=== PATIENT | male | born 1935 | race Caucasian/White ===

== ENCOUNTER 2016-03-22 16:18 | Emergency (ER) | payer MEDICARE, OTHER ==
[~2016-03-22 16:18] MED LIST: ASC500 PO; ASPI81TA2 PO; CHOL10002 PO; CYA1000I IM; ERGO400C PO; NAPR220T2 PO; NAPR375T2 PO; OMEP20TA86 PO; SERT50TA9 PO; TIZA2CAP7 PO; ZES5 PO
[2016-03-22 16:28] VITALS: BP 131/67; PULSE 72; RESP 18; O2SAT 93
--- NOTE | 2016-03-22 16:36 | ED.REPORT ---
HPI-Hip/Pelvis Prob/Inj Date of Service Mar 22, 2016 ED Provider: Osmar Ortiz MD Pt is an 80 year old male with a hx of HTN and left hip arthroplasty in 2011 with revision in 2016 presenting to the ED via EMS complaining of recurrent dislocation of his left hip. He reports that he reached forward and felt his hip pop. Pt was seen by Dr. Lua on January 22, 2016 with the same problem and was reduced in the emergency department. He denies other symptoms at this time. Nursing Notes Stated Complaint: LEFT HIP DISLOCATION Chief Complaint: Extremity Trauma Nursing Notes Reviewed: Yes Allergies: Coded Allergies: TAPE (Verified Allergy, Severe, BLISTERS, 03/16/09) Scheduled Ascorbic Acid-Expunged Drug, Do Not Renew! (Vitamin C-Expunged Drug, Do Not Renew!) 500 Mg Tablet 1,000 MG PO DAILY Aspirin-Expunged Drug, Do Not Renew! (Aspirin-Expunged Drug, Do Not Renew!) 81 Mg Tablet 81 MG PO DAILY Cholecalciferol-Expunged Drug, Do Not Renew! (Vitamin D3-Expunged Drug, Do Not Renew!) 1,000 Unit Tablet 2,000 UNITS PO DAILY Cyanocobalamine (Vitamin B12) 1 Ml Vial 1,000 MCG IM Q30D Ergocalciferol-Expunged Drug, Do Not Renew! (Vitamin D-Expunged Drug, Do Not Renew!) 400 Unit Capsule 400 UNIT PO DAILY Lisinopril-Expunged Drug, Do Not Renew! (Lisinopril-Expunged Drug, Do Not Renew! ) 5 Mg Tablet 5 MG PO DAILY Naproxen Sodium-Expunged Drug, Do Not Renew! (Naproxen Sodium-Expunged Drug, Do Not Renew!) 220 Mg Tablet 375 MG PO BIDWM Omeprazole-Expunged Drug, Do Not Renew! (Omeprazole-Expunged Drug, Do Not Renew! ) 20 Mg Tablet. 20 MG PO DAILY Sertraline-Expunged Drug, Choose New Med! (Sertraline-Expunged Drug, Choose New Med!) 50 Mg Tablet 50 MG PO DAILY Scheduled PRN Naproxen (Naproxen) 375 Mg Tablet 375 MG PO DAILY PRN PRN For Pain Miscellaneous Medications TIZANIDINE HCL-Expunged Drug, Do Not Renew! (TIZANIDINE-Expunged Drug, Do Not Renew!) 2 Mg Capsule 2 MG PO TAKE 1 CAPSULE 2-3 TIMES DAILY. 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 Respiratory: Denies: Shortness of breath Cardiovascular: Denies: Chest pain GI: Denies: Vomiting Physical Exam Initial Vital Signs Vital Signs (First) Date Time Temp Pulse Resp B/P Pulse Ox O2 Delivery O2 Flow Rate FiO2 03/22/16 16:28 36.7 72 18 131/67 93 Room Air Initial VS: Reviewed General/Constitutional: Well-developed, Well-nourished Head / Eyes: Atraumatic, Normocephalic, PERRL ENT: Mucous membranes moist, Conjunctiva normal, No scleral icterus Respiratory: Breath sounds normal, Clear to auscultation, No respiratory distress Cardiovascular: Regular rate & rhythm, Heart sounds normal, Intact distal pulses Abdomen / GI: No distention Upper Extremities: Vascular intact, Neuro intact, No swelling, No tenderness Skin: Warm, Dry, No cyanosis Neurologic: Alert, Oriented, Nonfocal Psychiatric: Mood/affect normal, Behavior normal, Normal thought content Interpretation & Diagnostics Lab Results Interpretation Test 03/22/16 17:05 Hold Purple Top Tube Received (Received) Hold Blue Top Tube Received (Received) Hold Red Top Tube Received (Received) Hold [place] Top Tube Received (Received) Hold [place] Top Tube Received (Received) X-Ray Interpretation Xray Interpretation: IMPRESSION: Dislocation left hip prosthesis Dictated by: Javon Rivera M.D. on 03/22/2016 at 17:04 IMPRESSION: Status post left hip arthroplasty reduction. Dictated by: Nancy Mccracken M.D. on 03/22/2016 at 19:11 X-Ray Ordered: Pelvis, Hip left Interpretation / Wet Read by: Interpret - Radiologist Procedures Proced Mod Sedation/Analgesia Pt tolerated procedure well, no complications. Time: 18:40 Procedure Performed by: ED physician Consent / Setup: Informed consent provided, Time-out performed, Hand hygiene observed, Stand sterile technique, Position supine, Head of bed at 90 degrees Indication: Hip reduction Preparation: hospitalist program director applied, Pulse oximeter applied, Constant attendance, IV access established, Eval last meal time, Procedure explained, Suction available VS Prior to Procedure: All vital signs normal Sedation: Sedation: Propofol ASA Classification: 1 normal healthy patient Response During Procedure: Handled secretions adeq, Maintained airway well, Oxygenation stable, Sedation appropriate, Vital signs stable Complications During/After: None Mental Status After Procedure: Alert, Oriented X3, Response to verbal stim, At patient's baseline Post-Procedure: Vital signs normal Attestation: I performed procedure, I performed sedation Reduction Post Dislocation Hip Pt tolerated procedure well, left hip dislocation successfully reduced. Time: 18:40 Procedure Performed by: ED physician Consent / Timeout / Setup: Consent from patient Procedural Sedation/Analgesia: Sedation: Propofol Which Hip and Technique: Left hip Neurovascular: Intact pre-procedure, Intact post-procedure Post-Procedure / Complications: Procedure successful, X-ray disloc reduced, Condition improved, Tolerated procedure well, Patient stable Re-Eval/Medical Decision Re-Evaluation/Progress #1: Time of Eval: 17:04 Patient Status: Condition improved Re-Evaluation/Progress Note: Discussed radiology results and plan for reduction. Pt not currently in pain. Re-Evaluation/Progress #2: Time of Eval: 18:20 Patient Status: Condition improved Re-Evaluation/Progress Note: Pt agrees to conscious sedation. Discussed risks of procedure. Pt understands and agrees with plan. Re-Evaluation/Progress #3: Time of Eval: 18:39 Patient Status: Condition improved Re-Evaluation/Progress Note: Performed conscious sedation and left hip reduction. Procedure tolerated well. Re-Evaluation/Progress #4: Time of Eval: 20:07 Patient Status: Condition improved Re-Evaluation/Progress Note: Discussed plan for discharge and follow up. Pt understands and agrees with plan. All pt questions addressed. Counseled Regarding: Diagnosis, Lab results, Need for follow-up, When/why to return to ED Discharge & Departure Impression: Primary Impression: Dislocation of left hip Encounter type: initial encounter Qualified Code: S73.005A - Unspecified dislocation of left hip, initial encounter Disposition: Home Discharge Condition All VS Reviewed: Yes Condition: Improved Additional Instructions: Please call your orthopedic surgeon this week so he is aware you had a second dislocation. Follow precautions for positions and movements given postoperatively. Do Not drive tonight as we gave sedating medications Referrals: Malena Caraballo MD (PCP) Scribe Attestation Portions of this note were transcribed by Eliza West. I, Dr. Ortiz personally performed the history, physical exam and medical decision-making; I reviewed and confirmed the accuracy of the information in the transcribed note. Signed by : Zuhair Mack, 03/22/2016 and 2139. copies to: Malena Caraballo MD, Donald L MD Mar 22, 2016 16:36 ELIZA WEST Mar 22, 2016 16:46
--- NOTE | 2016-03-22 17:07 | DRSVH ---
PROCEDURE: X-RAY LEFT HIP COMPLETE, MINIMUM TWO VIEWS ([id number]) INDICATIONS: dislocated TECHNIQUE: 2 views of the hip were acquired. COMPARISON: 02/17/2016 FINDINGS: Bones: Superior dislocation of the left hip prosthesis. No acute fracture seen. No suspicious bony le sions. The visualized pelvic ring appears intact. Soft tissues: No suspicious soft tissue calcifications or masses. IMPRESSION: Dislocation left hip prosthesis Dictated by: Javon Rivera M.D. on 03/22/2016 at 17:04 Approved by: Javon Rivera M.D. on 03/22/2016 at 17:05
[2016-03-22] MEDS: Propofol 10 mg/mL 20 mL Inj IVPUSH ONE ×2 (18:40→18:58)
--- NOTE | 2016-03-22 19:13 | DRSVH ---
PROCEDURE: X-RAY PELVIS, ONE OR TWO VIEWS ([id number]) INDICATIONS: post red TECHNIQUE: 2 view(s) of the pelvis acquired. COMPARISON: [facility], CR, XR HIP 2VW LT, 03/22/2016, 16:27. FINDINGS: Bones: There has been interval reduction of the left hip prosthetic dislocation. Soft tissues: Visualized bowel gas pattern is normal. No suspicious soft tissue calcifications. IMPRESSION: Status post left hip arthroplasty reduction. Dictated by: Nancy Mccracken M.D. on 03/22/2016 at 19:11 Approved by: Nancy Mccracken M.D. on 03/22/2016 at 19:11
[2016-03-22 20:23] VITALS: BP 139/88; PULSE 78; RESP 12; O2SAT 95
== END 2016-03-22 20:24 | disposition home or self-care (01) ==
LOC: SED 16:18
DX: T84.021A Dislocation of internal left hip prosthesis, initial encounter (principal); X50.1XXA Overexertion from prolonged static or awkward postures, initial encounter; Y92.009 Unspecified place in unspecified non-institutional (private) residence as the place of occurrence of the external cause; Y93.89 Activity, other specified; Y99.8 Other external cause status; K21.9 Gastro-esophageal reflux disease without esophagitis; I10 Essential (primary) hypertension; Z96.642 Presence of left artificial hip joint; Z87.891 Personal history of nicotine dependence; Z79.82 Long term (current) use of aspirin

== ENCOUNTER 2016-06-02 22:02 | Emergency (ER) | payer MEDICARE, OTHER ==
[~2016-06-02] VITALS: Ht 177.8 cm; Wt 84.1 kg
[2016-06-02 22:06] VITALS: BP 146/82; PULSE 79; RESP 16; O2SAT 96
--- NOTE | 2016-06-02 22:10 | ED.REPORT ---
HPI-Hip/Pelvis Prob/Inj Date of Service Jun 02, 2016 ED Provider: Mu Acuña MD Patient is a 80 year old male with a history of a left hip replacement s/p revision in 2016 and 2x recent hip dislocations presents to the ED via EMS with a left hip dislocation onset just prior to arrival. Tonight the patient was sitting on the edge of his bed and rolled over to the side, which caused his hip to dislocate. His hip reduced easily in the ED during the two prior visits for this complaint. The patient was seen at [facility] by his orthopedic surgeon last week to discuss his recent dislocations. X-rays were taken at that time. The surgeon stated that there was a revision that could be done for his hip replacement to reduce the frequency of dislocations, but that it would limit his range of motion. Patient denies any other medical complaints. The patient last ate around 4-5pm this afternoon. Nursing Notes Stated Complaint: LEFT HIP FX Chief Complaint: Extremity Trauma Nursing Notes Reviewed: Yes Allergies: Coded Allergies: TAPE (Verified Allergy, Severe, BLISTERS, 03/16/09) Scheduled Ascorbic Acid-Expunged Drug, Do Not Renew! (Vitamin C-Expunged Drug, Do Not Renew!) 500 Mg Tablet 1,000 MG PO DAILY Aspirin-Expunged Drug, Do Not Renew! (Aspirin-Expunged Drug, Do Not Renew!) 81 Mg Tablet 81 MG PO DAILY Cholecalciferol-Expunged Drug, Do Not Renew! (Vitamin D3-Expunged Drug, Do Not Renew!) 1,000 Unit Tablet 2,000 UNITS PO DAILY Cyanocobalamine (Vitamin B12) 1 Ml Vial 1,000 MCG IM Q30D Ergocalciferol-Expunged Drug, Do Not Renew! (Vitamin D-Expunged Drug, Do Not Renew!) 400 Unit Capsule 400 UNIT PO DAILY Lisinopril-Expunged Drug, Do Not Renew! (Lisinopril-Expunged Drug, Do Not Renew! ) 5 Mg Tablet 5 MG PO DAILY Naproxen Sodium-Expunged Drug, Do Not Renew! (Naproxen Sodium-Expunged Drug, Do Not Renew!) 220 Mg Tablet 375 MG PO BIDWM Omeprazole-Expunged Drug, Do Not Renew! (Omeprazole-Expunged Drug, Do Not Renew! ) 20 Mg Tablet.dr 20 MG PO DAILY Sertraline-Expunged Drug, Choose New Med! (Sertraline-Expunged Drug, Choose New Med!) 50 Mg Tablet 50 MG PO DAILY Scheduled PRN Naproxen (Naproxen) 375 Mg Tablet 375 MG PO DAILY PRN PRN For Pain Miscellaneous Medications TIZANIDINE HCL-Expunged Drug, Do Not Renew! (TIZANIDINE-Expunged Drug, Do Not Renew!) 2 Mg Capsule 2 MG PO TAKE 1 CAPSULE 2-3 TIMES DAILY. 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 Physical Exam Initial Vital Signs Vital Signs (First) Date Time Temp Pulse Resp B/P Pulse Ox O2 Delivery O2 Flow Rate FiO2 06/02/16 22:06 36.6 79 16 146/82 96 Room Air Initial VS: Reviewed, Vital signs normal Skin: Warm, Dry, No cyanosis Neurologic: Alert, Oriented, Nonfocal Psychiatric: Mood/affect normal, Behavior normal, Normal thought content Lower Extremity / Pelvis / MS: Neurologic intact, Vascular intact Left Hip: Positive: Deformity present (proximal deformity of the left lateral hip), Leg shortened (and internally rotated) General/Constitutional: Awake, Alert, No acute distress Head / Eyes: Atraumatic, Normocephalic, PERRL Neck: Supple, Non-tender Respiratory / Chest: Breath sounds NL, Breath sounds = bilat, No respiratory distress, No rales, No rhonchi, No wheezing Cardiovascular: Heart rate NL, Regular rhythm, Heart sounds NL, No murmurs ENT: Airway patent, Pharynx NL Interpretation & Diagnostics Lab Results Interpretation Test 06/02/16 23:36 Hold Purple Top Tube Received (Received) Hold Blue Top Tube Received (Received) Hold [place] Top Tube Received (Received) X-Ray Interpretation Xray Interpretation: Impression: Two-part prosthesis, which is cleared dislocated. X-Ray Ordered: Hip left Interpretation / Wet Read by: Wet read ED physician Xray Interpretation: Impression: Reduced. No fracture. X-Ray Ordered: Hip left Interpretation / Wet Read by: Wet read ED physician Procedures Proced Mod Sedation/Analgesia Time: 22:45 Procedure Performed by: ED physician Sedation Time: 10 - 15 min Consent / Setup: Informed consent provided, Consent from patient, Time-out performed, Hand hygiene observed, Stand sterile technique, Position supine Indication: Hip reduction Preparation: vehicle monitor technician applied, Pulse oximeter applied, Constant attendance, IV access established, Eval last meal time, Supplemental oxygen, Procedure explained, Suction available, End tidal CO2 mon applied VS Prior to Procedure: All vital signs normal Mallampati: Class & Anatomy: 1 tonsils/uvula/s palate Airway Exam: Normal facial anatomy, Normal neck anatomy, Normal anatomy CVS/Resp Exam: Normal breath sounds, Normal heart sounds Neuro Exam: Alert, No acute distress, Responsive Sedation: Sedation: Propofol (100mg) ASA Classification: 2 mild systemic disease Response During Procedure: Handled secretions adeq, Maintained airway well, Oxygenation stable, Sedation appropriate, Vital signs stable Complications During/After: None Reversal: None required Mental Status After Procedure: Alert, Oriented X3 Post-Procedure: Alert prior to discharge, Ambulatory with assist, Pt rtn pre- proc baseline, Vital signs normal Attestation: I performed procedure, I performed sedation Reduction Post Dislocation Hip Time: 22:44 Procedure Performed by: ED physician Consent / Timeout / Setup: Informed consent provided, Consent from patient, Time-out performed, Oxygen administered, Pulse oximeter applied, vehicle monitor technician applied, Hand hygiene observed Procedural Sedation/Analgesia: Sedation: Propofol (100mg) Which Hip and Technique: Left hip (traction with countertraction, with hip flexed at 90 degrees) Neurovascular: Intact pre-procedure, Intact post-procedure Post-Procedure / Complications: Reduced per examination, Procedure successful, X-ray disloc reduced, Hip immobilized, Condition improved, Tolerated procedure well, Patient stable Re-Eval/Medical Decision Med Decision/Clinical Course 80-year-old male with recurrent left hip dislocation. He has a two-part prosthesis. X-ray confirmed dislocation. The hip was easily repeated repositioned under propofol sedation. X-ray confirmed relocation. There were no problems or complications. Source of Hx: Old records Re-Evaluation/Progress #1: Time of Eval: 22:30 Re-Evaluation/Progress Note: Patient's hip will be reduced, as it is dislocated per x-ray. Risks/benefits of procedural sedation discussed. Consent signed. Re-Evaluation/Progress #2: Time of Eval: 22:45 Re-Evaluation/Progress Note: Hip was reduced successfully. Re-Evaluation/Progress #3: Time of Eval: 22:55 Patient Status: Condition improved Re-Evaluation/Progress Note: Patient is now awake and alert. He reports hip pain and will be given medication for his pain. Re-Evaluation/Progress #4: Time of Eval: 23:52 Patient Status: Condition improved Re-Evaluation/Progress Note: Patient is ready to be discharged home, pain is now under control. Patient understands and agrees with the plan to be discharged home. Discharge instructions and follow-up discussed. All questions were addressed. Return to the ED warnings given. Counseled Regarding: Diagnosis, Need for follow-up, When/why to return to ED Discharge & Departure Impression: Primary Impression: Dislocation of left hip Encounter type: initial encounter Qualified Code: S73.005A - Unspecified dislocation of left hip, initial encounter Disposition: Home Discharge Condition All VS Reviewed: Yes Condition: Stable Patient Instructions: Moderate Sedation (ED) Additional Instructions: The hip was easily relocated under propofol 100 mg IV sedation. Avoid bending the left hip. Use the knee immobilizer to assist with that. Do not drive. Home to sleep. Follow-up with your regular orthopedist to discuss the future of this hip. Referrals: Malena Caraballo MD (PCP) Scribe Attestation Portions of this note were transcribed by Shannan Cohn. I, Dr. Acuña personally performed the history, physical exam and medical decision-making; I reviewed and confirmed the accuracy of the information in the transcribed note. Signed by: Zuhair Trinidad, 06/03/2016 0008 copies to: Malena Caraballo MD, Howard L MD Jun 02, 2016 22:10 Shannan Cohn Jun 02, 2016 22:18
[2016-06-02] MEDS ORDERED: Propofol 10 mg/mL 20 mL Inj IVPUSH ONE (22:30)
[2016-06-02] MEDS ORDERED: HYDROmorphone 0.5 mg/0.5 mL iSecure Syringe IVPUSH ONE (23:05)
[2016-06-03 00:03] VITALS: BP 117/62; PULSE 74; RESP 18; O2SAT 94
--- NOTE | 2016-06-03 10:02 | DRSVH ---
PROCEDURE: X-RAY LEFT HIP, ONE VIEW ([id number]) INDICATIONS: probable dislocation TECHNIQUE: 3 views of the hip were acquired. COMPARISON: None. FINDINGS: Bones: Superior lateral dislocation of the femoral head prosthetic component of the left hip arthropl asty relative to the acetabular component. No definite periprosthetic fractures. Soft tissues: No suspicious soft tissue calcifications or masses. IMPRESSION: Left hip dislocation. Dictated by: Raghav Carmona RR Interpreted: Mary Melendez MD on 06/03/2016 at 8:27 Transcribed by: ANA on 06/03/2016 at 10:02 Approved by: Mary Melendez MD, PhD on 06/03/2016 at 12:20
--- NOTE | 2016-06-03 10:03 | DRSVH ---
PROCEDURE: X-RAY LEFT HIP COMPLETE, MINIMUM TWO VIEWS ([id number]) INDICATIONS: status post reduction TECHNIQUE: 2 views of the hip were acquired. COMPARISON: [facility], CR, XR HIP 2VW LT, 03/22/2016, 16:27. FINDINGS: Bones: Expected appearance and position status post closed reduction of left hip arthroplasty disloca tion. No periprosthetic fractures. Soft tissues: No suspicious soft tissue calcifications or masses. IMPRESSION: Expected bony and hardware alignment status post closed reduction of left hip dislocation . Dictated by: Raghav LYNN Interpreted: Mary Melendez MD on 06/03/2016 at 8:31 Transcribed by: ANA on 06/03/2016 at 10:02 Approved by: Mary Melendez MD, PhD on 06/03/2016 at 12:20
== END 2016-06-03 00:20 | disposition home or self-care (01) ==
LOC: EDBD 22:02 → SED 22:02 → EDUNIT# 22:02 → SED 06-03 00:20
DX: T84.021A Dislocation of internal left hip prosthesis, initial encounter (principal); X50.1XXA Overexertion from prolonged static or awkward postures, initial encounter; Y93.89 Activity, other specified; Y92.003 Bedroom of unspecified non-institutional (private) residence as the place of occurrence of the external cause; Y99.8 Other external cause status; I10 Essential (primary) hypertension; K21.9 Gastro-esophageal reflux disease without esophagitis; Z87.891 Personal history of nicotine dependence; Z91.048 Other nonmedicinal substance allergy status
CPT/HCPCS: 27265; 73501; 73502; 94799; 96374; 99152; 99285; J1170

== ENCOUNTER → 2016-11-02 | Day surgery (SDC) | payer MEDICARE, OTHER ==
[~2016-11-02] VITALS: Ht 177.8 cm; Wt 83.9 kg
[~2016-11-02] MED LIST changes: +0.9% Sodium Chloride 1,000 ML IV PRN; +ACET-171 PO; -ASC500 PO; -ASPI81TA2 PO; +ASPI81TA3 PO; -CHOL10002 PO; -CYA1000I IM; -ERGO400C PO; +LISI-571 PO; +LOPE2TAB32 PO; +LORA-302 PO; +MULT-528 PO; +NAPR-873 PO; -NAPR220T2 PO; -NAPR375T2 PO; +OMEP20CA11 PO; -OMEP20TA86 PO; +Sodium Chloride LOK Flush 10 mL Syringe IV PRN; -TIZA2CAP7 PO; -ZES5 PO; +fentaNYL-PF 50 mCg/mL 2 mL Inj IVPUSH PRN
[2016-11-02 14:13] VITALS: BP 159/97; PULSE 86; RESP 16; O2SAT 96
[2016-11-02 15:53] VITALS: BP 136/77; PULSE 88; RESP 16; O2SAT 95
[2016-11-02 16:03] VITALS: BP 128/77; PULSE 80; RESP 16; O2SAT 96
[2016-11-02 16:25] VITALS: BP 150/88; PULSE 75; O2SAT 91
--- NOTE | 2016-11-02 17:27 | ENDO ---
[address] [address] ENDOSCOPY PROCEDURE PATIENT: ASHKAN VELASQUEZ : 1935 MR#: [id number] ADMIT: 11/02/2016 JOB ID: [id number] PRIMARY PROVIDER: Malena Caraballo MD PROCEDURE: Esophagogastroduodenoscopy with biopsy and a limited flexible sigmoidoscopy with biopsy. INDICATIONS: An 81-year-old male with a history of anal cancer treated with radiation therapy. He has suffered from anal stenosis as a consequence. He also has a history of short-segment Bunch's. He was recently hospitalized for symptoms of a transient bowel obstruction. He has historically declined dilatation of the anal stenosis over fears that he would become unacceptably incontinent. Recent imaging by way of CT while in-house demonstrated some thickening in the region of the sigmoid. EQUIPMENT: GIF H 180 J. SEDATION: 5 mg Versed and 125 mcg fentanyl. COMPLICATIONS: None identified. PROCEDURE INFORMATION: After the risks and benefits were explained, written and verbal informed consent was obtained. The patient was brought into the endoscopy suite and placed into the left lateral decubitus position. Sedation was achieved using the above-stated medications with the addition of oxygen via nasal cannula. The scope was advanced through the bite block, to the second portion of the duodenum. The scope was slowly withdrawn to carefully examine the mucosa for any defects or lesions. Retroflexed views were accomplished in the stomach, the stomach was decompressed, and the scope removed from the patient, who tolerated the procedure well. The patient was then turned around. A digital rectal examination was accomplished but I could not get even the initial aspect of my index finger through the stenosed opening. With a well-lubricated GIF H 180 J scope we were able to with some difficulty advance into the rectum. We then attempted to advance through the sigmoid which, along with the rectum, demonstrated some mild diffuse erythema. There were some scattered apparent pseudopolyps. The bowel felt quite fixed and was very sharply angulated at this location and I could not advance through a loop that was forming in his pelvic without putting an unacceptable amount of pressure on the bowel. We elected to abandon our efforts at further navigation. Biopsy was acquired. The scope was withdrawn. The bowel was decompressed and the scope removed from the patient ultimately, and he seemed to tolerate things quite well. FINDINGS: 1. Duodenum: No pathology appreciated from the bulb through to the second portion. 2. Stomach: No significant mucosal pathology appreciated throughout. No ulcers or mass lesions. Retroflexed views of the LES were unremarkable. 3. Esophagus: The squamocolumnar junction seemed to generally correlate with the top of the gastric folds. The GEJ was at about 40 cm from the incisors. Z-line was a little irregular, consistent with the previous diagnosis of the very short segment specialized intestinal metaplasia. A repeat biopsy was acquired in the region of the distal esophagus. No other pathology identified throughout. 4. Colon: Severe anal stenosis. I did not appreciate any recurrent neoplasia. The scope advancing through the rectum in essence created a mild dilatation effect. There was very mild radiation-induced proctopathy as previously described all the way through to about 20 cm. I could not advance the GIF scope any further secondary to a fixed angulated bowel. There were also some pseudopolyps with and without some inflammatory mucosa. A couple of biopsies were taken from this area at around 18 cm from the anal verge. ENDOSCOPIC DIAGNOSES: 1. Very short segment Bunch's. 2. Hiatal hernia. 3. Anal stenosis. 4. Radiation induced proctopathy. 5. Failed colonoscopy secondary to tortuosity, likely adhesions, and some moderate stenosis through the sigmoid region. RECOMMENDATIONS: 1. Await histopathology. 2. Continue fiber supplementation as before. 3. Follow up in GI Clinic to discuss the next steps. The patient will likely again need to be considered for surgical evaluation and even permanent end colostomy.
--- NOTE | 2016-11-04 14:00 | PATH ---
SURGICAL PATHOLOGY Attending Physician:Richard Jon CASE STATUS: Signed Out PATIENT NAME: ASHKAN VELASQUEZ PID: [id number] : 1935 DATE COLLECTED:11/02/2016 00:00 SPECIMEN: 1: Esophagus, Biopsy 2: Colon, Biopsy CLINICAL HISTORY: 1). DISTAL ESOPHAGUS BIOPSY 2). SIGMOID BIOPSY FINAL DIAGNOSIS: 1. Distal Esophagus, Biopsy: Squamocolumnar junctional mucosa with specialized intestinal metaplasia, consistent with Bunch's esophagus. Negative for dysplasia or malignancy. 2. Sigmoid Colon, Biopsy: Colonic mucosa with erosion. Negative for granulomata, dysplasia or malignancy. ICD10: K22.7 GROSS DESCRIPTION: The specimen is received in two formalin filled containers labeled with the patient's name. 1). The specimen is labeled "distal esophagus" and consists of a less than 0.1 CM portion of tissue which is entirely submitted in cassette 1A. 2). This specimen is labeled "sigmoid" and consists of a 0.2 x 0.2 x 0.2 CM portion of tissue which is entirely submitted in cassette 2A. 11/03/2016NM ICD-9 CODES: CPT CODES: 1: 78096 2: 10242 Electronically Signed Out Franco Linder MD, Ph.D. [facility] Pathology [facility] [address], [place] [address] Technical component performed at [facility], [facility] [address], [place], [address]
== END | disposition home or self-care (01) ==
LOC: END 00:40
PROVIDERS: ATTEND Internal Medicine Gastroenterology
DX: R93.8 Abnormal findings on diagnostic imaging of other specified body structures (principal); K62.7 Radiation proctitis; K62.4 Stenosis of anus and rectum; K22.70 Barrett's esophagus without dysplasia; K44.9 Diaphragmatic hernia without obstruction or gangrene; Z85.048 Personal history of other malignant neoplasm of rectum, rectosigmoid junction, and anus; I10 Essential (primary) hypertension; F32.9 Major depressive disorder, single episode, unspecified; K21.9 Gastro-esophageal reflux disease without esophagitis; E53.8 Deficiency of other specified B group vitamins
CPT/HCPCS: 43239; 45380; 88305; 99153; G0500; J2250; J3010; J7030